=== PATIENT | male | born 1980 | race Caucasian/White ===

== ENCOUNTER 2016-11-18 19:14 | Emergency (ER) | payer OTHER ==
[~2016-11-18] VITALS: Ht 182.9 cm; Wt 88.4 kg
[2016-11-18 19:22] VITALS: TEMP 37.1; Ht 182.9 cm; Wt 88.4 kg
[2016-11-18] MEDS ORDERED: SODIUM CHLORIDE 0.9% 1000ML 1,000 ML IV STA ×2 (19:29→20:47)
[2016-11-18] MEDS ORDERED: HYDROmorphone INJ 1 MG/ML SYR IV STA (19:29)
[2016-11-18] MEDS ORDERED: ONDANSETRON INJ 2 MG/ML 2 ML VIAL IV STA (19:29)
[2016-11-18] MEDS ORDERED: OPTIRAY 320 IV PRN (19:45)
[2016-11-18 19:49] LABS: BASO % 0.2 %; BASO ABS # 0.04 K/uL (0-0.2); COMPLETE YES; EOS % 1.4 %; HEMATOCRIT 51.7 % (42-52); IG% 0.3 %; LYMPH % 11.8 %; MEAN CELL VOLUME 88.8 fL (80-100); MONO % 7.7 %; NEUT % 78.6 %; PLATELET COUNT 273 K/uL (130-400); RED BLOOD COUNT 5.82 M/uL (4.7-6.1); WHITE BLOOD COUNT 16.04 K/uL (4.8-10.8)
[2016-11-18 19:55] LABS: ISTAT CREATININE 0.9 mg/dl (0.6-1.3); ISTAT HEMOGLOBIN 18.7 g/dl (14.0-18.0); ISTAT IONIZED CALCIUM 1.18 mmol/l (1.12-1.32)
[2016-11-18] MEDS ORDERED: QUET1TAB32 PO (20:05)
[2016-11-18] MEDS ORDERED: QUET1TAB37 PO (20:05)
[2016-11-18] MEDS ORDERED: EFF75 PO (20:05)
[2016-11-18] MEDS ORDERED: PRAZ2CAP3 PO (20:05)
[2016-11-18 20:17] LABS: ALKALINE PHOSPHATASE 69 U/L (45-117); ALT/SGPT 61 U/L (12-78); BLOOD UREA NITROGEN 12 mg/dl (7-18); BUN/CREATININE RATIO 12.4 (10-20); CALCIUM 10.1 mg/dl (8.5-10.1); CARBON DIOXIDE 29 mmol/L (21-32); CHLORIDE 100 mmol/L (98-107); GLUCOSE 92 mg/dl (70-99); SODIUM 141 mmol/L (136-145)
[2016-11-18 20:29] LABS: AST/SGOT 319 U/L (15-37); POTASSIUM 4.4 mmol/L (3.5-5.1)
--- NOTE | 2016-11-18 20:40 | DIAGNOSTIC IMAGING REPORT ---
CT SCAN OF THE ABDOMEN AND PELVIS WITH IV CONTRAST CLINICAL HISTORY: Generalized abdominal pain. Nausea and vomiting. COMPARISON STUDY: No priors. TECHNIQUE: Following the IV administration of 93 cc of Optiray 320, CT scan of the abdomen and pelvis is performed from the lung bases to the proximal femora. Images are reviewed in the axial, sagittal, and coronal planes. IV contrast was administered without complication. Automated dose control exposure was utilized. CT DOSE: 351.58 mGy.cm FINDINGS: Lung bases: The heart is normal in size and without pericardial effusion. The lung bases are clear noting dependent atelectasis. Liver: The contrast-enhanced liver is normal in size, contour, and attenuation. There is no intrahepatic biliary ductal dilatation. The hepatic veins and portal veins are patent. Gallbladder: Unremarkable. Spleen: Normal in size and attenuation. Pancreas: Unremarkable. Adrenal glands: Unremarkable. Kidneys: The contrast enhanced kidneys are normal in size and without hydronephrosis. The kidneys enhance symmetrically. Abdominal vasculature: The abdominal aorta is normal in course and caliber. Bowel: There is mild gastric wall thickening and hyperemia is suspected. The stomach and duodenum are normal in configuration. There is no bowel obstruction. The appendix is well-visualized and normal. Peritoneum: There is no intraperitoneal free air or abdominal ascites. There is a small fat-containing umbilical hernia. Lymphadenopathy: None. Pelvic viscera: The bladder, prostate, and seminal vesicles are normal as visualized. Skeletal structures: No lytic or blastic lesions are seen. IMPRESSION: 1. Question mild gastric wall thickening and hyperemia. Correlate clinically for evidence of gastritis. 2. No additional abnormality is identified in the abdomen or pelvis. Electronically signed by: Jerry Gooden M.D. 11/18/2016 8:38 PM Dictated Date/Time: 11/18/2016 8:33 PM
[2016-11-18] MEDS ORDERED: GI COCKTAIL PO STA (20:44)
[2016-11-18] MEDS ORDERED: PANTOprazole INJ 40 MG in SYRINGE 0 ML IV ONE (20:45)
[2016-11-18] MEDS ORDERED: LIDOCAINE HCL 2% VISC SOLN 20 ML UDC ONE (20:47)
[2016-11-18] MEDS ORDERED: ALUMINUM/MAGNESIUM SUSP 30 ML UDC ONE (20:48)
[2016-11-18] MEDS ORDERED: OMEP20TA PO (21:06)
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
[2016-11-18 22:06] VITALS: BP 118/78; PULSE 88; O2SAT 99
== END 2016-11-18 22:08 | disposition home or self-care (01) ==
LOC: C.EDB 19:16 → C.EDC 22:08
DX: K29.00 Acute gastritis without bleeding (principal); F17.210 Nicotine dependence, cigarettes, uncomplicated; Z79.899 Other long term (current) drug therapy

== ENCOUNTER → 2016-11-28 | Outpatient (CLI) | payer OTHER ==
[~2016-11-28] MED LIST: EFF75 PO; OMEP20TA PO; PRAZ2CAP3 PO; QUET1TAB32 PO; QUET1TAB37 PO
[2016-11-28 11:40] LABS: BASO % 0.4 %; BASO ABS # 0.04 K/uL (0-0.2); EOS % 3.7 %; HEMATOCRIT 48.4 % (42-52); IG% 0.1 %; LYMPH % 24.6 %; LYMPH ABS # 2.22 K/uL (1.2-3.4); MEAN CORPUSCULAR HEMOGLOBIN 32.2 pg (25-34); MEAN PLATELET VOLUME 10.3 fL (7.4-10.4); NEUT % 62.2 %; PLATELET COUNT 270 K/uL (130-400); RED BLOOD COUNT 5.38 M/uL (4.7-6.1); WHITE BLOOD COUNT 9.02 K/uL (4.8-10.8)
[2016-11-28 11:41] LABS: COMPLETE YES; MEAN CORPUSCULAR HGB CONC 35.7 g/dl (32-36)
[2016-11-28 12:05] LABS: ALB/GLOB RATIO 1.2 (0.9-2); ALKALINE PHOSPHATASE 63 U/L (45-117); ALT/SGPT 49 U/L (12-78); AMYLASE 54 U/L (25-115); AST/SGOT 44 U/L (15-37); BLOOD UREA NITROGEN 20 mg/dl (7-18); BUN/CREATININE RATIO 21.3 (10-20); CALCIUM 9.2 mg/dl (8.5-10.1); CARBON DIOXIDE 29 mmol/L (21-32); CHLORIDE 104 mmol/L (98-107); CREATININE 0.92 mg/dl (0.60-1.40); GLUCOSE 96 mg/dl (70-99); POTASSIUM 4.1 mmol/L (3.5-5.1); SODIUM 141 mmol/L (136-145)
== END ==
LOC: C.LABSPEC 11:25
DX: R10.9 Unspecified abdominal pain (principal)